=== PATIENT | female | born 2000 | race Caucasian/White ===

== ENCOUNTER → 2021-01-05 | Outpatient (CLI) | payer OTHER ==
[~2021-01-05] MED LIST: MACROBID 100 M100 M2 PO; NOHOMEMEDICATIONS; ZOFRAN ODT4 MG PO
== END ==
LOC: M.ULTRA 09:00
PROVIDERS: ATTEND Specialist
DX: N28.1 Cyst of kidney, acquired (principal)

== ENCOUNTER → 2021-04-24 | Outpatient (CLI) | payer OTHER | LOC: M.NUC 07:43 | PROVIDERS: ATTEND Nurse Practitioner Adult Health | DX: R10.9 Unspecified abdominal pain (principal); R11.2 Nausea with vomiting, unspecified ==

== ENCOUNTER → 2021-09-17 | Outpatient (CLI) | payer OTHER | LOC: M.LAB 12:51 → M.CT 14:00 | PROVIDERS: ATTEND Nurse Practitioner | DX: J03.01 Acute recurrent streptococcal tonsillitis (principal); M79.89 Other specified soft tissue disorders; B95.4 Other streptococcus as the cause of diseases classified elsewhere; R53.83 Other fatigue ==